=== PATIENT | male | born 2000 | race Caucasian/White ===

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

== ENCOUNTER 2020-06-23 20:55 | Emergency (ER) | payer BC ==
[2020-06-23] MEDS ORDERED: LIDOCAINE 1% INJ-PF (10 MG/ML) 30 ML SDV INJ ONE (22:09)
--- NOTE | 2020-06-23 22:09 | ER Document Report ---
ED Medical Screen (RME) - General Chief Complaint: Laceration Stated Complaint: LEFT FINGER LACERACTION Time Seen by Provider: 06/23/20 22:03 Mode of Arrival: Ambulatory Information source: Patient Notes: Otherwise healthy 19-year-old male presents emergency department with laceration to his left index finger. Patient reports this occurred just prior to arrival while he was cutting up a dog treat with a knife. Patient has full range of motion of this finger. There is mild active bleeding noted. New dressing applied. He is not sure when his last tetanus was. Laceration measures appr oximately 2 cm. I have greeted and performed a rapid initial assessment of this patient. A comprehensive ED assessment and evaluation of the patient, analysis of test results and completion of the medical decision making process will be conducted by additional ED providers. I have specifically instructed the patient or family members with the patient to immediately return to any nursing staff s hould anything change in the patient's condition or with their chief complaint. TRAVEL OUTSIDE OF THE [place] IN LAST 30 DAYS: No - Related Data Allergies/Adverse Reactions: No Known Allergies Allergy (Verified 06/20/17 18:24) Past Medical History - Social History Frequency of alcohol use: None Drug Abuse: None Renal/ Medical History: Denies: Hx Peritoneal Dialysis - Immunizations Immunizations up to date: Yes Hx Diphtheria, Pertussis, Tetanus Vaccination: Yes Physical Exam - Vital signs Vitals: Temp Pulse Resp BP Pulse Ox 98.3 F 59 L 14 133/75 H 99 06/23/20 21:19 06/23/20 21:19 06/23/20 21:19 06/23/20 21:19 06/23/20 21:19 Course - Vital Signs Vital signs: Temp Pulse Resp BP Pulse Ox 98.3 F 59 L 14 133/75 H 99 06/23/20 21:19 06/23/20 21:19 06/23/20 21:19 06/23/20 21:19 06/23/20 21:19
[2020-06-23] MEDS ORDERED: DIPH/PERTUSS(ACELL)/TETANUS VAC/PF 0.5 ML SYR (>=10YO) IM ONE (22:19)
--- NOTE | 2020-06-24 00:31 | ER Document Report ---
ED Wound - General Chief Complaint: Laceration Stated Complaint: LEFT FINGER LACERACTION Time Seen by Provider: 06/23/20 22:03 Mode of Arrival: Ambulatory Notes: Patient is a 19-year-old male that comes to the emergency department for chief complaint of accidental laceration to the left index finger over the dorsal aspect. Patient states that he was trying to cut a dog treat in half using a knife and he slipped and accidentally stabbed himself. He denies any other injuries. Tetanus is not up-to-date. Father at bedside. No past medical history reported. TRAVEL OUTSIDE OF THE [place] IN LAST 30 DAYS: No - Related Data Allergies/Adverse Reactions: No Known Allergies Allergy (Verified 06/20/17 18:24) Past Medical History - General Information source: Patient, Parent - Social History Smoking Status: Never Smoker Frequency of alcohol use: None Drug Abuse: None Lives with: Family Family History: Reviewed & Not Pertinent Patient has homicidal ideation: No Renal/ Medical History: Denies: Hx Peritoneal Dialysis Surgical Hx: Negative - Immunizations Immunizations up to date: Yes Hx Diphtheria, Pertussis, Tetanus Vaccination: Yes Review of Systems - Review of Systems Constitutional: No symptoms reported EENT: No symptoms reported Cardiovascular: No symptoms reported Respiratory: No symptoms reported Gastrointestinal: No symptoms reported Genitourinary: No symptoms reported Male Genitourinary: No symptoms reported Musculoskeletal: See HPI Skin: See HPI Hematologic/Lymphatic: No symptoms reported Neurological/Psychological: No symptoms reported Physical Exam - Vital signs Vitals: Temp Pulse Resp BP Pulse Ox 98.3 F 59 L 14 133/75 H 99 06/23/20 21:19 06/23/20 21:19 06/23/20 21:19 06/23/20 21:19 06/23/20 21:19 - Notes Notes: GENERAL: Alert, interacts well. No acute distress. HEAD: Normocephalic, atraumatic. EYES: Pupils equal, round, and reactive to light. Extraocular movements intact. ENT: Oral mucosa moist, tongue midline. Oropharynx unremarkable. Airway patent. LUNGS: Clear to auscultation bilaterally, no wheezes, rales, or rhonchi. No respiratory distress. Non-tender chest wall. HEART: Regular rate and rhythm. No murmur ABDOMEN: Soft, non-tender. Non-distended. EXTREMITIES: Left index finger dorsally with a laceration between the MCP and PIP which is approximately 2 cm in length, flap, irregular. This is very easily explored, I can glimpse the edge of the tendon, there does not appear to be any bony involvement. The tendon is not lacerated and moves appropriately with full range of motion, patient has full range of motion of the finger with normal strength in flexion and extension against resistance, normal capillary refill and sensation, unremarkable extremities otherwise. BACK: no cervical, thoracic, lumbar midline tenderness. NEUROLOGICAL: Alert and oriented x3. Normal speech. Cranial nerves II through XII grossly intact. Strength 5/5 in all extremities. PSYCH: Normal affect, normal mood. SKIN: Warm, dry, normal turgor. No rashes or lesions noted. Course - Re-evaluation Re-evalutation: Patient's wound with no evidence of tendon, nerve, or large vessel injury. No evidence of bony involvement. No deficits on examination. Wound was thoroughly irrigated and closed, because of the depth patient was placed on antibiotics after discussing options, discussed care, follow-up, return precautions. Patient and dad state understanding and agreement. - Vital Signs Vital signs: Temp Pulse Resp BP Pulse Ox 98.0 F 62 16 128/68 H 100 06/24/20 01:15 06/24/20 01:15 06/24/20 01:15 06/24/20 01:15 06/24/20 01:15 Procedures - Laceration/Wound Repair Left index finger Wound length (cm): 2 Wound's Depth, Shape: Irregular, Flap Laceration pre-procedure: Sterile PPE donned, Sterile drapes applied, Shur-Clens applied Anesthetic type: 1% Lidocaine Volume Anesthetic (mLs): 4 Wound explored: Clean, No foreign body removed Wound Repaired With: Sutures Suture Size/Type: 5:0, Prolene Number of Sutures: 7 Layer Closure?: No Post-procedure wound care: Sterile dressing applied Post-procedure NV exam normal: Yes Complications: No Discharge - Discharge Clinical Impression: Laceration of left index finger Qualifiers: Encounter type: initial encounter Damage to nail status: without damage Foreign body presence: without foreign body Qualified Code(s): S61.211A - Laceration without foreign body of left index finger without damage to nail, initial encounter Condition: Stable Disposition: HOME, SELF-CARE Additional Instructions: The wound was repaired with sutures. Keep clean, clean with soap and water, dab dry, avoid soaking or scrubbing. You can apply thin film of topical antibiotic. Take the oral antibiotic as prescribed to completion. Sutures need to be removed in about 7 days at a medical facility. Return sooner for any concerning symptoms including signs of infection such as developing pain, swelling, redness, discolored discharge, fever, or any other concerning symptoms. Prescriptions: Cephalexin Monohydrate [Keflex 500 mg Capsule] 500 mg PO TID 5 Days #15 capsule Forms: Return to Work
[2020-06-24 01:16] VITALS: BP 128/68
== END 2020-06-24 01:20 | disposition home or self-care (01) ==
LOC: ER 20:55
DX: S61.211A Laceration without foreign body of left index finger without damage to nail, initial encounter (principal); W26.0XXA Contact with knife, initial encounter; Z23 Encounter for immunization
CPT/HCPCS: 99283; 90471; 90715; 12001; J3490